=== PATIENT | female | born 1985 | race Caucasian/White ===

== ENCOUNTER 2016-07-23 11:10 | Emergency (ER) | payer SELFPAY ==
[2016-07-23] MEDS ORDERED: Acetaminophen 325 MG TAB ONE (11:30)
== END 2016-07-23 11:45 | disposition home or self-care (01) ==
LOC: NAV ERS 11:10
DX: J11.1 Influenza due to unidentified influenza virus with other respiratory manifestations (principal)
CPT/HCPCS: 99283

== ENCOUNTER 2019-04-08 18:26 | Emergency (ER) | payer SELFPAY | END 2019-04-08 19:10 | disposition home or self-care (01) | LOC: NAV ERS 18:26 | DX: J32.9 Chronic sinusitis, unspecified (principal); F31.9 Bipolar disorder, unspecified; F17.210 Nicotine dependence, cigarettes, uncomplicated | CPT/HCPCS: 99283 ==

== ENCOUNTER 2024-04-19 16:30 | Emergency (ER) | payer SELFPAY ==
[2024-04-19] MEDS ORDERED: Ibuprofen 800 MG TAB ONE (16:50)
[2024-04-19] MEDS ORDERED: Ondansetron ODT 4 MG TAB ONE (16:50)
== END 2024-04-19 17:35 | disposition home or self-care (01) ==
LOC: NAV ERS 16:30
DX: B34.9 Viral infection, unspecified (principal); F17.210 Nicotine dependence, cigarettes, uncomplicated
CPT/HCPCS: 87428; 99283; Q0162